=== PATIENT | female | born 1980 | race Caucasian/White ===

== ENCOUNTER 2018-06-20 19:00 | Emergency (ER) | payer MEDICAID, SELFPAY ==
[2018-06-20 19:05] VITALS: BP 142/97; PULSE 102; RESP 18; TEMP 36.5; O2SAT 97; BMI 31.9
--- NOTE | 2018-06-20 19:16 | RAD_ITS ---
STUDY: X-RAY - RIGHT HAND REASON FOR EXAM: Female, 38 years old. Punched wall. Fifth metacarpal pain. TECHNIQUE: Three view(s) of the hand. COMPARISON: None. FINDINGS: Bones: There are no acute osseous abnormalities. Joints: The joints are unremarkable. Soft tissues: The soft tissues are unremarkable. Foreign body: None RAD/Hand Min 3 Views IMPRESSION: No acute abnormalities are seen in the hand. Electronically Signed: Steve Santos MD at 20:09 EDT , Service support ,
--- NOTE | 2018-06-20 19:22 | ED.VISSUMM ---
- ER Visit Summary Date of Service: 06/20/18 Chief Complaint: Right hand injury History of Present Illness: The patient is a 38 F presenting with right hand injury. Patient states she was angry at 4 AM and punched a wall. She is right-handed. No other injuries. She complains of right small finger pain. Physical Examination: Vitals are stable. Patient is afebrile. Alert no acute distress. HEENT exam is unremarkable. Lungs are clear and equal bilaterally. Heart is regular rate and rhythm. Extremities tenderness and ecchymosis right small finger, painful range of motion Skin is warm and dry. No focal neurologic deficit. Remainder of exam is unremarkable. Emergency Department Course and Treatment: Right hand x-ray shows no acute process. Patient is advised to ice and elevate. Aluminum foam splint applied. Advised to follow-up with her primary care physician. Advised return to ED if worsening complaints. Disposition: Discharge home Impression: Right small finger injury This note was generated with [employer] dictation software. It may contain incorrect words, spelling, and punctuation that were not noted in review of the chart prior to signing ED Disposition - Plan for ED Patient: Disposition: Home or Assisted Living Chief Complaint: Upper Extremity Injury Instructions: ED Contusion Upper Ext Prescriptions: Naproxen [Naprosyn] 500 mg PO BID PRN #20 tablet Referrals: Care Physician,No Primary [Primary Care Provider] -
--- NOTE | 2018-06-20 20:17 | ED.DEP ---
ED Disposition - Plan for ED Patient: Chief Complaint: Upper Extremity Injury Instructions: ED Contusion Upper Ext Prescriptions: Naproxen [Naprosyn] 500 mg PO BID PRN #20 tablet Referrals: Care Physician,No Primary [Primary Care Provider] -
[2018-06-20 20:23] VITALS: PULSE 88; RESP 16
== END 2018-06-20 20:32 | disposition home or self-care (01) ==
LOC: ED 19:52
PROVIDERS: Emergency Provider Emergency Medicine
DX: S69.91XA Unspecified injury of right wrist, hand and finger(s), initial encounter (principal); W22.8XXA Striking against or struck by other objects, initial encounter; Y93.89 Activity, other specified; Z72.0 Tobacco use
CPT/HCPCS: 73130; 99282

== ENCOUNTER 2018-07-15 20:15 | Emergency (ER) | payer MEDICAID, SELFPAY ==
[2018-07-15 20:16] VITALS: BP 154/100; PULSE 98; RESP 16; TEMP 36.8; O2SAT 99; BMI 33.0
--- NOTE | 2018-07-15 20:25 | ED.RN ---
NO OLD EKGS IN MUSE.
--- NOTE | 2018-07-15 20:38 | CT_ITS ---
STUDY: CT ABDOMEN AND PELVIS WITHOUT CONTRAST REASON FOR EXAM: Female, 38 years old. Lower abdominal and pubic pain RADIATION DOSAGE (If Supplied By Facility): CTDIvol = ( 15.76 ) mGy, DLP = ( 858.60 ) mGycm TECHNIQUE: Transaxial images were obtained from the dome of the diaphragm to the symphysis pubis without oral contrast, and without intravenous contrast. Sagittal and coronal images were reconstructed. Individualized dose optimization techniques were used for this CT. COMPARISON: None. FINDINGS: There is a tiny nodule in the right lung base measuring 3 mm in size likely of no significance. The visualized portions of the heart are within normal limits. Small periesophageal and internal mammary nodes are present of uncertain etiology and significance Normal liver. Gallbladder has been removed surgically. Normal spleen. Normal pancreas. Normal bilateral adrenal glands. Normal right kidney. Normal left kidney. Normal visualized stomach. Normal small intestine. Diverticular changes of the descending and sigmoid colon without evidence for acute diverticulitis. Appendix not visualized which may be consistent with appendectomy. Atherosclerotic changes of the aorta without evidence for aneurysm. Normal inferior vena cava. Normal retroperitoneum. Post surgical changes are seen in the pelvis on the right Incompletely distended diffusely thick-walled bladder of uncertain clinical significance.. Uterus is normal size. There are 2 small hypoattenuated nodules in the uterine fundus consistent with fibroids Normal abdominal wall. Lumbar spine demonstrates mild spondylosis CT/Abdomen/Pelvis without Cont IMPRESSION: Postop changes status post cholecystectomy and probable appendectomy.. There are also postsurgical changes of the pelvis on the right. Mild diverticular disease of the colon without evidence for acute diverticulitis. Small nodules within the uterine fundus likely fibroids which may be further assessed with MRI if indicated Incompletely distended mildly thick-walled bladder of indeterminate significance although may be consistent with cystitis. Clinical correlation recommended in this regard Electronically Signed: Andrew Nguyễn MD at 21:18 EST , Service support ,
--- NOTE | 2018-07-15 20:38 | ED.VISSUMM ---
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 She reports that she has suprapubic pain began 3 days ago. Is a cramping, stabbing pain Zeta 10 at worst and 5-10 currently. Is worsened by intercourse and relieved by the position. Denies any nausea or vomiting. She reports she has had diarrhea 4 times a day for the past 3 days. She complains of a dysuria that she describes as pressure. She denies any frequency or hematuria. Patient is status post uterine ablation. Patient denies sick contacts. Has not been camping out of the country. No possible bad food exposure. Does not drink well water. No recent antibiotic use. Physical Examination: Vitals: Stable. Afebrile. General: Well-nourished and well-developed. Head: Normocephalic atraumatic. Neck: Supple, no lymphadenopathy. No JVD. Nontender. Cardiovascular: Regular rate and rhythm. No murmurs. Respiratory: No respiratory distress. Clear to auscultation bilaterally. Abdominal: Soft, mild right lower quadrant and left lower quadrant tenderness to palpation and moderate suprapubic tenderness to palpation, nondistended, normal bowel sounds. No guarding, rebound, or peritoneal signs. Back: Nontender. Extremities: Nontender, no edema. Skin: Normal color, no rash. Neurologic: Alert and oriented ?3. Cranial nerves II through XII are intact. Normal strength and sensation. Psych: Normal affect. Test Results: UA is negative. test is negative. Clinical Impression(s) from Imaging Studies Abdomen/Pelvis CT 07/15/18 20:38 IMPRESSION: Postop changes status post cholecystectomy and probable appendectomy.. There are also postsurgical changes of the pelvis on the right. Mild diverticular disease of the colon without evidence for acute diverticulitis. Small nodules within the uterine fundus likely fibroids which may be further assessed with MRI if indicated Incompletely distended mildly thick-walled bladder of indeterminate significance although may be consistent with cystitis. Clinical correlation recommended in this regard Electronically Signed: Andrew Nguyễn MD at 21:18 EST , Service support , Emergency Department Course and Treatment: Patient refused an IV and blood work. She was treated with Tylenol p.o. I discussed the findings with her. She questions whether her urine is negative because she has been drinking so much fluid. She was given a dose of Cipro p.o. I do not think that she has a bacterial source for her diarrhea, but this would help with that as well. Treatment Plan: Patient will be discharged with 3 days of Cipro. Instructed to follow-up with Dr. Sands in 1 week if not improving. I did discuss the need to see gynecology as well. She is instructed to follow-up with [facility] as needed. Return to the emergency department for any worsening symptoms. Disposition: To home in improved and stable condition. Impression: 1. Dysuria. 2. Diarrhea. 3. Pelvic pain, uncertain cause. This note was generated with [employer] dictation software. It may contain incorrect words, spelling, and punctuation that were not noted in review of the chart prior to signing ED Disposition - Plan for ED Patient: Disposition: Home or Assisted Living Chief Complaint: Abd Pain Instructions: ED Dysuria Uncertain Cause Prescriptions: Ciprofloxacin [Cipro] 500 mg PO BID #6 tablet Referrals: Andrew Sands MD [NON-STAFF] - 1 Week if not improving Cheri Zhang CNM [Certified Nurse Biologics Specialist] - As Needed
[2018-07-15] MEDS: Acetaminophen 500 MG Tablet 1000 MG PO (20:42)
[2018-07-15 20:47] LABS: Bacteria 0 SEEN /hpf (None Seen); Mucous, Urine 0 SEEN /hpf (<or=2+); Red Blood Cells-Urine 0 SEEN /hpf (0-5); White Blood Cells 0 SEEN /hpf (0-5)
[2018-07-15 20:48] LABS: Color, Urine Yellow (Yellow); Glucose, Dipstick Normal (Normal); Ketone-Dipstick Negative (Negative); Leukocyte Esterase-Dipstick Negative /ul (Negative); Nitrite-Dipstick Negative (Negative); Occult Blood-Urine Negative /ul (Negative); Protein-Dipstick Negative (Negative); Urine Bilirubin Dipstick Negative (Negative); Urine Clarity Clear (Clear); Urine Urobilinogen Normal (Normal)
[2018-07-15 20:55] LABS: Internal QC Validated? YES +Cl - CLEAR BKGD; Pregnancy, Urine Negative Negative
[2018-07-15 20:59] LABS: Squamous Epithelial Cells - UA 0-5 SEEN /hpf (5-10)
[2018-07-15] MEDS: Ciprofloxacin 500 MG Tablet PO (21:33)
[2018-07-15 21:34] VITALS: BP 133/85; PULSE 71; RESP 18; O2SAT 99
--- OUTSIDE RECORDS SUMMARY | 2018-09-10 04:36 | XMS RPT_ITS ---
:1980 Author Organization OHIP Care Team Providers Name Role Phone LUCIO ANDREA Primary Care Unavailable JASEN FISHER Attending Unavailable EROS, PAT Admitting Unavailable EROS, AMIR Attending Unavailable SHAUNA HONEYCUTT Consulting Unavailable NIMCO SINCLAIR Consulting Unavailable Daiana Kramer Attending Unavailable Primay Care Physicia, No Primary Care Unavailable Primay Care Physicia, No Primary Care Unavailable Vadim Choudhury Attending Unavailable ROSALEE CRESPO Admitting Unavailable MOABRILRCHARLIEE, DOMI Attending Unavailable NIMCO SINCLAIR Consulting Unavailable SHAUNA HONEYCUTT Consulting Unavailable MOOKERCHARLIEE, DOMI Consulting Unavailable PROBLEMS PROBLEMS DATE TYPE CONDITION / CODE ATTENDING STATUS SOURCE 09/27/2017 Admitting Cutaneous abscess Cole CHANDLER [facility] diagnosis of right axilla / [facility] L02.411(ICD-10) Repository 09/26/2017 Admitting Cellulitis, PAT COONEY Active [facility] diagnosis unspecified / Hospital L03.90(ICD-10) Repository 09/18/2017 Principle Acute JASEN FISHER Active [facility] diagnosis pharyngitis, Hospital unspecified / Repository J02.9(ICD-10) PROCEDURES PROCEDURES DATE CODE DESCRIPTION STATUS SOURCE 09/30/2017 VSW602(C4) AMB EXTERNAL REFERRAL Completed [facility] TO PSYCHOLOGY [facility] Repository 09/30/2017 YIP285(C4) AMB EXTERNAL REFERRAL Completed [facility] TO PAIN CLINIC [facility] Repository 09/30/2017 ZDC083(C4) DME ORDER FOR (SPECIFY) Completed [facility] OP [facility] Repository 09/30/2017 ADT8(C4) DISCHARGE PATIENT Completed [facility] Repository 09/30/2017 EOQ844(C4) MISCELLANEOUS NURSING Completed [facility] CARE ORDER (SPECIFY) Medical Center Repository 09/30/2017 83611(C4) US DUP ABD PEL RETRO Completed [facility] SCROT COMPLETE Medical Center Repository 09/30/2017 RT99(C4) INITIATE OXYGEN THERAPY Completed [facility] Repository 09/30/2017 LAB39(C4) VANCOMYCIN, TROUGH Completed [facility] Repository 09/30/2017 FER682(C4) INTAKE AND OUTPUT Completed [facility] Repository 09/30/2017 MXU877(C4) INTAKE AND OUTPUT Completed [facility] Repository 09/30/2017 PYC116(C4) INTAKE AND OUTPUT Completed [facility] Repository 09/30/2017 REP561(C4) CHANGE DRESSING Completed [facility] Repository 09/29/2017 TBC2765(C4) ALDOSTERONE AND Completed [facility] RENIN, DIRECT WITH Medical Center RATIO Repository 09/29/2017 ISO1(C4) CONTACT ISOLATION Completed [facility] Repository 09/29/2017 ECH09(C4) ECHOCARDIOGRAM COMPLETE Completed [facility] WITH BUBBLE STUDY Medical Center Repository 09/29/2017 RT99(C4) INITIATE OXYGEN THERAPY Completed [facility] Repository 09/29/2017 CAP423(C4) INTAKE AND OUTPUT Completed [facility] Repository 09/29/2017 BOX348(C4) INTAKE AND OUTPUT Completed [facility] Repository 09/29/2017 PQN887(C4) INTAKE AND OUTPUT Completed [facility] Repository 09/28/2017 ADT1(C4) PATIENT STATUS (FROM ED Completed [facility] OR OR/PROCEDURAL) Medical Center Repository 09/28/2017 COD2(C4) FULL CODE Completed [facility] Repository 09/28/2017 SPG707(C4) VITAL SIGNS Completed [facility] Repository 09/28/2017 NUR11(C4) AMBULATE PATIENT Completed [facility] Repository 09/28/2017 DIET24(C4) DIET GENERAL Completed [facility] Repository 09/28/2017 BQL803(C4) INTAKE AND OUTPUT Completed [facility] Repository 09/28/2017 WRY783(C4) INTAKE AND OUTPUT Completed [facility] Repository 09/28/2017 NUR51(C4) ELEVATE HOB Completed [facility] Repository 09/28/2017 FGU571(C4) TOBACCO CESSATION Completed [facility] Repository 09/28/2017 RT99(C4) INITIATE OXYGEN THERAPY Completed [facility] Repository 09/28/2017 RT99(C4) INITIATE OXYGEN THERAPY Completed [facility] Repository 09/28/2017 NFM100(C4) PLACE INTERMITTENT Completed [facility] PNEUMATIC COMPRESSION [facility] DEVICE Repository 09/28/2017 ADT7(C4) TRANSFER PATIENT Completed [facility] Repository 09/28/2017 EMQ0851(C4) SURGICAL CULTURE Completed [facility] Repository 09/28/2017 QAA9499(C4) SURGICAL CULTURE Completed [facility] Repository 09/28/2017 LAB39(C4) VANCOMYCIN, TROUGH Completed [facility] Repository 09/28/2017 CML8040(C4) CBC WITH AUTO Completed [facility] Repository 09/28/2017 LAB95(C4) LACTIC ACID, PLASMA Completed [facility] Repository 09/28/2017 GQR632(C4) APTT Completed [facility] Repository 09/28/2017 VPK183(C4) PROTIME-INR Completed [facility] Repository 09/28/2017 PFB448(C4) MAGNESIUM Completed [facility] Repository 09/28/2017 CVP2979(C4) URINE DRUG SCREEN Completed [facility] Repository 09/27/2017 QBC737(C4) PATIENT MAY SHOWER Completed [facility] Repository 09/27/2017 WYH526(C4) MAGNESIUM Completed [facility] Repository 09/27/2017 LAB17(C4) COMPREHENSIVE METABOLIC Completed [facility] Repository 09/27/2017 CCG5979(C4) CBC WITH AUTO Completed [facility] Repository 09/27/2017 TFS254(C4) TYPE AND SCREEN Completed [facility] Repository 09/27/2017 LAB99(C4) LIPASE Completed [facility] Repository 09/27/2017 LAB95(C4) LACTIC ACID, PLASMA Completed [facility] Repository 09/27/2017 SUR1(C4) CASE REQUEST Completed [facility] Repository 09/27/2017 XVI283(C4) TREATMENT CONSENT Completed [facility] Repository 09/27/2017 con4(C4) IP CONSULT TO GENERAL Completed [facility] Repository 09/27/2017 con5(C4) IP CONSULT TO Completed [facility] INFECTIOUS DISEASES [facility] Repository 09/27/2017 ONK681(C4) MISCELLANEOUS NURSING Completed [facility] ORDER ([facility]) [facility] Repository 09/27/2017 EWT285(C4) IP CONSULT TO PHARMACY Completed [facility] Repository 09/27/2017 WVN203(C4) IP CONSULT TO PHARMACY Completed [facility] Repository 09/27/2017 EVD864(C4) TELEMETRY MONITORING Completed [facility] Repository 09/27/2017 QWU462(C4) NOTIFY PHYSICIAN Completed [facility] (SPECIFY) [facility] Repository 09/27/2017 VOH159(C4) VITAL SIGNS Completed [facility] Repository 09/27/2017 DDV137(C4) PLACE INTERMITTENT Completed [facility] PNEUMATIC COMPRESSION [facility] DEVICE Repository 09/27/2017 ADT8(C4) DISCHARGE PATIENT Completed [facility] Repository 09/27/2017 RTL252(C4) TELEMETRY MONITORING Completed [facility] Repository 09/27/2017 JVZ485(C4) IP CONSULT TO PHARMACY Completed [facility] Repository 09/27/2017 ECH09(C4) ECHOCARDIOGRAM COMPLETE Completed [facility] WITH BUBBLE STUDY Hospital Repository 09/27/2017 con5(C4) IP CONSULT TO Completed [facility] INFECTIOUS DISEASES Hospital Repository 09/27/2017 con4(C4) IP CONSULT TO GENERAL Completed [facility] Repository 09/26/2017 VED623(C4) HCG, SERUM, QUALITATIVE Completed [facility] Repository 09/26/2017 LQL885(C4) IP CONSULT TO PHARMACY Completed [facility] Repository 09/26/2017 COD2(C4) FULL CODE Completed [facility] Repository 09/26/2017 LQB320(C4) VITAL SIGNS Completed [facility] Repository 09/26/2017 NBC608(C4) NOTIFY PHYSICIAN Completed [facility] (SPECIFY) Hospital Repository 09/26/2017 DIET24(C4) DIET GENERAL Completed [facility] Repository 09/26/2017 BBP802(C4) PLACE INTERMITTENT Completed [facility] PNEUMATIC COMPRESSION Hospital DEVICE Repository 09/26/2017 XUA034(C4) MISCELLANEOUS NURSING Completed [facility] CARE ORDER (SPECIFY) Hospital Repository 09/26/2017 ADT1(C4) PATIENT STATUS (FROM ED Completed [facility] OR OR/PROCEDURAL) Hospital Repository 09/26/2017 LAB17(C4) COMPREHENSIVE METABOLIC Completed [facility] PANEL Hospital Repository 09/26/2017 WSM3936(C4) CBC WITH AUTO Completed [facility] DIFFERENTIAL [facility] Repository 09/26/2017 KXI2738(C4) CULTURE BLOOD #1 Completed [facility] Repository 09/26/2017 ETZ5285(C4) CULTURE BLOOD #2 Completed [facility] Repository 09/26/2017 IVT11(C4) SALINE LOCK IV Completed [facility] Repository 09/18/2017 YXG675(C4) RAPID STREP SCREEN Completed [facility] Repository 09/18/2017 JWV7443(C4) CULTURE BETA STREP Completed [facility] CONFIRM PLATE Hospital Repository RESULTS RESULTS EMERGENCY DEPARTMENT Observed: 07/15/2018 Status: F Source: [place] SUMMARY 11:11 PM [facility] REPOSITORY [facility] Medical Records Department [address] [place] [address] Emergency Department Summary 07/15/182037 MR#: [id number] Acct: [id number] Name: GODFREY CORNEJO Rep #: [id number] : 1980 38 From: Vadim Choudhury MD PCP: Care Physician, No Primary Status: DEP ER - ER Visit Summary Date of Service: 07/15/18 Chief Complaint: Abdominal pain History of Present Illness: The patient is a 38 F with no primary care physician or 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 She reports that she has suprapubic pain began 3 days ago. Is a cramping, stabbing pain Zeta 10 at worst and 5-10 currently. Is worsened by intercourse and relieved by the position. Denies any nausea or vomiting. She reports she has had diarrhea 4 times a day for the past 3 days. She complains of a dysuria that she describes as pressure. She denies any frequency or hematuria. Patient is status post uterine ablation. Patient denies sick contacts. Has not been camping out of the country. No possible bad food exposure. Does not drink well water. No recent antibiotic use. Physical Examination: Vitals: Stable. Afebrile. General: Well-nourished and well-developed. Head: Normocephalic atraumatic. Neck: Supple, no lymphadenopathy. No JVD. Nontender. Cardiovascular: Regular rate and rhythm. No murmurs. Respiratory: No respiratory distress. Clear to auscultation bilaterally. Abdominal: Soft, mild right lower quadrant and left lower quadrant tenderness to palpation and moderate suprapubic tenderness to palpation, nondistended, normal bowel sounds. No guarding, rebound, or peritoneal signs. Back: Nontender. Extremities: Nontender, no edema. Skin: Normal color, no rash. Neurologic: Alert and oriented 3. Cranial nerves II through XII are intact. Normal strength and sensation. Psych: Normal affect. Test Results: UA is negative. test is negative. Clinical Impression(s) from Imaging Studies Abdomen/Pelvis CT 07/15/18 20:38 IMPRESSION: Postop changes status post cholecystectomy and probable appendectomy.. There are also postsurgical changes of the pelvis on the right. Mild diverticular disease of the colon without evidence for acute diverticulitis. Small nodules within the uterine fundus likely fibroids which may be further assessed with MRI if indicated Incompletely distended mildly thick-walled bladder of indeterminate significance although may be consistent with cystitis. Clinical correlation recommended in this regard Electronically Signed: Andrew Nguyễn MD at 21:18 EST , Service support , Emergency Department Course and Treatment: Patient refused an IV and blood work. She was treated with Tylenol p.o. I discussed the findings with her. She questions whether her urine is negative because she has been drinking so much fluid. She was given a dose of Cipro p.o. I do not think that she has a bacterial source for her diarrhea, but this would help with that as well. Treatment Plan: Patient will be discharged with 3 days of Cipro. Instructed to follow-up with Dr. Sands in 1 week if not improving. I did discuss the need to see gynecology as well. She is instructed to [facility]. Return to the emergency department for any worsening symptoms. Disposition: To home in improved and stable condition. Impression: 1. Dysuria. 2. Diarrhea. 3. Pelvic pain, uncertain cause. This note was generated with [employer] dictation software. It may contain incorrect words, spelling, and punctuation that were not noted in review of the chart prior to signing ED Disposition - Plan for ED Patient: Disposition: Home or Assisted Living Chief Complaint: Abd Pain Instructions: ED Dysuria Uncertain Cause Prescriptions: Ciprofloxacin [Cipro] 500 mg PO BID #6 tablet Referrals: Andrew Sands MD [NON-STAFF] - 1 Week if not improving Cheri Zhang CNM [Certified Nurse Muffler Hand] - As Needed What to do if you have Problems For any increased pain, shortness of breath, bleeding, nausea or vomiting, chest pain, or any unexpected problems, contact your Primary Care Provider. Call [facility] ([phone]) or report to the closest Emergency Room. Call 911 if necessary. 07/15/18 2311 <Electronically signed by Vadim Choudhury MD> Date Vadim Choudhury MD Cosigner Signature (If Indicated): Date CC: No Primary Care Physician ABDOMEN/PELVIS WITHOUT Observed: 07/15/2018 Status: F Source: [place] CONT 8:38 PM [facility] REPOSITORY [facility] Imaging Services [address] [place] [address] Abdomen/Pelvis without Cont MR#: [id number] Acct: [id number] Name: GODFREY CORNEJO Rep #: [id number] : 1980 F 38 From: nAdrew Nguyễn MD PCP: Care Physician, No Primary Status: REG ER Study: Abdomen/Pelvis without Cont Date of Exam: 07/15/18 Exam# [id number] Ordering Dr: Vadim Choudhury MD STUDY: CT ABDOMEN AND PELVIS WITHOUT CONTRAST REASON FOR EXAM: Female, 38 years old. Lower abdominal and pubic pain RADIATION DOSAGE (If Supplied By Facility): CTDIvol = ( 15.76 ) mGy, DLP = ( 858.60 ) mGycm TECHNIQUE: Transaxial images were obtained from the dome of the diaphragm to the symphysis pubis without oral contrast, and without intravenous contrast. Sagittal and coronal images were reconstructed. Individualized dose optimization techniques were used for this CT. COMPARISON: None. FINDINGS: There is a tiny nodule in the right lung base measuring 3 mm in size likely of no significance. The visualized portions of the heart are within normal limits. Small periesophageal and internal mammary nodes are present of uncertain etiology and significance Normal liver. Gallbladder has been removed surgically. Normal spleen. Normal pancreas. Normal bilateral adrenal glands. Normal right kidney. Normal left kidney. Normal visualized stomach. Normal small intestine. Diverticular changes of the descending and sigmoid colon without evidence for acute diverticulitis. Appendix not visualized which may be consistent with appendectomy. Atherosclerotic changes of the aorta without evidence for aneurysm. Normal inferior vena cava. Normal retroperitoneum. Post surgical changes are seen in the pelvis on the right Incompletely distended diffusely thick-walled bladder of uncertain clinical significance.. Uterus is normal size. There are 2 small hypoattenuated nodules in the uterine fundus consistent with fibroids Normal abdominal wall. Lumbar spine demonstrates mild spondylosis CT/Abdomen/Pelvis without Cont IMPRESSION: Postop changes status post cholecystectomy and probable appendectomy.. There are also postsurgical changes of the pelvis on the right. Mild diverticular disease of the colon without evidence for acute diverticulitis. Small nodules within the uterine fundus likely fibroids which may be further assessed with MRI if indicated Incompletely distended mildly thick-walled bladder of indeterminate significance although may be consistent with cystitis. Clinical correlation recommended in this regard Electronically Signed: Andrew Nguyễn MD at 21:18 EST , Service support , CC: No Primary Care Physician; Vadim Choudhury MD [employer] Developer: Signed URINALYSIS, COMPLETE Collected: 07/15/2018 Status: F Source: [place] 8:22 PM [facility] REPOSITORY Order Comment: How was Urine Obtained? CLEAN CATCH TYPE CODE TESTS RESULT OUT OF RANGE REFERENCE UNITS LAB L400.3000 Yellow COLOR Normal Yellow LAB L400.3050 Clear Normal CLARITY Clear LAB L400.3200 Normal mg/dl Normal GLUCOSE, UR Normal LAB L400.3300 Negative mg/dL Normal BILIRUBIN URINE Negative LAB L400.3400 Negative mg/dl Normal KETONE UR Negative LAB L400.3465 1.002-1.030 Normal SP.GR. DIPSTX 1.010 LAB L400.3550 5.0 - 8.0 pH UR Normal 5.0 LAB L400.3600 Negative mg/dl PROT Normal DIPSTX Negative LAB L400.3700 Normal mg/dl Normal UROBILI Normal LAB L400.3750 Negative Normal NITRITE UR Negative LAB L400.3780 Negative /ul Normal OCCULT BLOOD-UR Negative LAB L400.3800 Negative /ul LEUK Normal ESTERASE Negative LAB L400.4050 0-5 /hpf WBC 0 Normal SEEN LAB L400.4100 0-5 /hpf 0 Normal RBC-UA SEEN LAB L400.4150 5-10 /hpf SQUAM Normal EPI 0-5 SEEN LAB L400.4300 None Seen /hpf 0 Normal BACTERIA SEEN LAB L400.4350 <or=2+ /hpf 0 Normal MUCUS, URINE SEEN Performed By: #### L400.0001 #### [facility] [address] [facility] [address] [place], [place], [address] ,URINE Collected: 07/15/2018 Status: F Source: [place] 8:22 PM [facility] REPOSITORY TYPE CODE TESTS RESULT OUT OF REFERENCE UNITS RANGE LAB L400.8000 Negative Normal HCGUQUAL Negative Result Comment: Very dilute urine specimens, as indicated by a low specific gravity, may not contain district representative levels of hCG. If is still suspected, a first morning urine specimen should be collected 48 hours later and tested. Performed By: #### L400.7600 #### [facility] [address] [place], [address] EMERGENCY DEPARTMENT Observed: 06/21/2018 Status: F Source: [place] SUMMARY 12:10 AM [facility] REPOSITORY [facility] Medical Records Department [address] [place] [address] Emergency Department Summary 06/20/181921 MR#: [id number] Acct: [id number] Name: GODFREY CORNEJO Rep #: [id number] : 1980 38 From: Daiana Kramer MD PCP: Donnie Physician, No Primary Status: DEP ER - ER Visit Summary Date of Service: 06/20/18 Chief Complaint: Right hand injury History of Present Illness: The patient is a 38 F presenting with right hand injury. Patient states she was angry at 4 AM and punched a wall. She is right- handed. No other injuries. She complains of right small finger pain. Physical Examination: Vitals are stable. Patient is afebrile. Alert no acute distress. HEENT exam is unremarkable. Lungs are clear and equal bilaterally. Heart is regular rate and rhythm. Extremities tenderness and ecchymosis right small finger, painful range of motion Skin is warm and dry. No focal neurologic deficit. Remainder of exam is unremarkable. Emergency Department Course and Treatment: Right hand x-ray shows no acute process. Patient is advised to ice and elevate. Aluminum foam splint applied. Advised to follow-up with her primary care physician. Advised return to ED if worsening complaints. Disposition: Discharge home Impression: Right small finger injury This note was generated with [employer] dictation software. It may contain incorrect words, spelling, and punctuation that were not noted in review of the chart prior to signing ED Disposition - Plan for ED Patient: Disposition: Home or Assisted Living Chief Complaint: Upper Extremity Injury Instructions: ED Contusion Upper Ext Prescriptions: Naproxen [Naprosyn] 500 mg PO BID PRN #20 tablet Referrals: Care Physician,No Primary [Primary Care Provider] - What to do if you have Problems For any increased pain, shortness of breath, bleeding, nausea or vomiting, chest pain, or any unexpected problems, contact your Primary Care Provider. Call [facility] ([phone]) or report to the closest Emergency Room. Call 911 if necessary. 06/21/18 0010 <Electronically signed by Daiana Kramer MD> Date Daiana Kramer MD Cosigner Signature (If Indicated): Date CC: No Primary Care Physician DISCHARGE INSTRUCTION Observed: 06/20/2018 Status: F Source: [place] 8:19 PM [facility] REPOSITORY [facility] Medical Records Department [address] [place] [address] Discharge Instruction 06/20/182016 MR#: [id number] Acct: [id number] Name: GODFREY CORNEJO Rep #: [id number] : 1980 38 From: Daiana Kramer MD PCP: Care Physician, No Primary Status: REG ER ED Disposition - Plan for ED Patient: Chief Complaint: Upper Extremity Injury Instructions: ED Contusion Upper Ext Prescriptions: Naproxen [Naprosyn] 500 mg PO BID PRN #20 tablet Referrals: Care Physician,No Primary [Primary Care Provider] - What to do if you have Problems For any increased pain, shortness of breath, bleeding, nausea or vomiting, chest pain, or any unexpected problems, contact your Primary Care Provider. Call [facility] ([phone]) or report to the closest Emergency Room. Call 911 if necessary. 06/20/182018 <Electronically signed by Daiana Kramer MD> Date Daiana Kramer MD Cosigner Signature (If Indicated): Date CC: No Primary Care Physician HAND MIN 3 VIEWS Observed: 06/20/2018 Status: F Source: [place] 7:17 PM [facility] REPOSITORY [facility] Imaging Services [address] [place] [address] Hand Min 3 Views MR#: [id number] Acct: [id number] Name: GODFREY CORNEJO Rep #: [id number] : 1980 F 38 From: Steve Santos MD PCP: Care Physician, No Primary Status: REG ER Study: Hand Min 3 Views Date of Exam: 06/20/18 Exam# [id number] Ordering Dr: Daiana Kramer MD STUDY: X-RAY - RIGHT HAND REASON FOR EXAM: Female, 38 years old. Punched wall. Fifth metacarpal pain. TECHNIQUE: Three view(s) of the hand. COMPARISON: None. FINDINGS: Bones: There are no acute osseous abnormalities. Joints: The joints are unremarkable. Soft tissues: The soft tissues are unremarkable. Foreign body: None RAD/Hand Min 3 Views IMPRESSION: No acute abnormalities are seen in the hand. Electronically Signed: Steve Santos MD at 20:09 EDT , Service support , CC: No Primary Care Physician; Daiana Kramer MD [employer] Developer: Signed VANCOMYCINTROUGH LEVEL Collected: 09/30/2017 Status: F Source: [facility] 12:43 AM [facility] REPOSITORY TYPE CODE TESTS RESULT OUT OF REFERENCE UNITS RANGE LAB VANT1 5.0-10.0 ug/mL Vancomycin 8.8 Trough US DUP ABD PEL RETRO Observed: 09/29/2017 Status: F Source: [facility] SCROT COMPLETE 7:00 PM [facility] REPOSITORY US DUP ABD PEL RETRO SCROT COMPLETE : 09/30/2017 CLINICAL HISTORY: Concern for renal artery stenosis; HTN in young adult . COMPARISON: None available. TECHNIQUE: Transabdominal ultrasound of the kidneys was performed with Doppler analysis compared to the abdominal aorta, for evaluation of renal artery stenosis. FINDINGS: Both kidneys are normal in size, position and morphology, each measuring approximately 11.8 cm in length. Maximum systolic velocity within the right renal artery is 130 cm/s, and on the left approximately 123 cm/s. When compared to the abdominal aorta the systolic ratios are 1.0 on the right and 0.95 on the left, which indicates less than 60% stenosis. Resistive index measurements are approximately 0.7 bilaterally. There are no abnormal perinephric collections, hydronephrosis, visualized nephrolithiasis, solid or cystic renal masses, significant renal atrophy, cortical cortical echogenicity. IMPRESSION: NORMAL-APPEARING KIDNEYS, WITHOUT EVIDENCE OF RENAL ARTERY STENOSIS. Interpreted by: Miguel Houston MD Signed by: Miguel Houston MD 09/30/17 Final result ALDOSTERONE & RENIN, Collected: 09/29/2017 Status: F Source: [email or web address] WITH RATIO 6:45 PM [facility] REPOSITORY TYPE CODE TESTS RESULT OUT OF REFERENCE UNITS RANGE LAB 0157F 2.5-45.7 pg/mL Direct Renin 3.0 LAB 0258C 0.1-3.7 ratio Aldosterone/Direc <1.0 t Renin Calculation Result Comment: INTERPRETIVE INFORMATION: Aldosterone/Direct Renin Ratio An Aldosterone/Direct Renin Activity Ratio of greater than 3.7 is suggestive of hyperaldosteronism. Performed by [facility], [address] [place] [id number] [email or web address], Kenan Toribio MD - Lab. Director LAB 7001E ng/dL Aldosterone <3.0 Result Comment: INTERPRETIVE INFORMATION: Aldosterone, Serum Reference intervals for age 15 and older: Upright ......... 4.0 - 31.0 ng/dL Supine .......... Less than or equal to 16.0 ng/dL Unspecified ..... Less than or equal to 31.0 ng/dL Normal serum levels of aldosterone are dependent on the sodium intake and whether the patient is upright or supine. High sodium intake will tend to suppress serum aldosterone, whereas low sodium intake will elevate serum aldosterone. The reference intervals for serum aldosterone are based on normal sodium intake. Access complete set of age- and/or gender-specific reference intervals for this test in the [facility] Test Directory ([email or web address]). Observed: 09/28/2017 Status: F Source: [facility] CULTURE, SURGICAL 9:36 [facility] REPOSITORY ORDERED BY: SHAUNA HONEYCUTT SOURCE: Arm Swab COLLECTED: 09/28/17 09:36 ANTIBIOTICS AT [facility].: RECEIVED : 09/28/17 13:09 CALL Sebastian LC4W tel. [phone], MRSA results called to and read back by Tammy Cuenca, 09/29/2017 10:58, by AKESH Gram Stain Direct FINAL 09/28/17 14:23 Few WBC's Few Gram positive cocci in clusters-resembling Staph Culture, Anaerobic FINAL 09/30/17 11:38 No Anaerobes Isolated Culture, Surgical FINAL 09/30/17 11:38 Moderate growth Staph aureus MRSA CONTACT PRECAUTIONS INDICATED PBP2= POSITIVE Refer to previous sensitivity Observed: 09/28/2017 Status: F Source: [facility] CULTURE, SURGICAL 9:35 [facility] REPOSITORY ORDERED BY: SHAUNA HONEYCUTT SOURCE: Arm Swab COLLECTED: 09/28/17 09:35 ANTIBIOTICS AT [facility]ISA.: RECEIVED : 09/28/17 13:09 CALL Sebastian LC4W tel. [phone], MRSA results called to and read back by Tammy Cuenca, 09/29/2017 10:57, by AKESH Gram Stain Direct FINAL 09/28/17 14:22 Moderate WBC's Rare intracellular Gram positive cocci Culture, Anaerobic PRELIM 09/29/17 10:08 Culture in progress Culture, Surgical INTERIM 09/29/17 10:57 Moderate growth Staph aureus MRSA Sensitivity to follow CONTACT PRECAUTIONS INDICATED PBP2= POSITIVE Observed: 09/28/2017 Status: F Source: [facility] BACTERIAL SUSCEPTIBILITY 9:35 AM [facility] REPOSITORY ORDERED BY: SHAUNA HONEYCUTT SOURCE: Arm Swab COLLECTED: 09/28/17 09:35 ANTIBIOTICS AT [facility].: RECEIVED : 09/28/17 13:09 CALL Sebastian LC4W tel. [phone], MRSA results called to and read back by Tammy Cuenca, 09/29/2017 10:57, by AKESH Gram Stain Direct FINAL 09/28/17 14:22 Moderate WBC's Rare intracellular Gram positive cocci Culture, Anaerobic FINAL 09/30/17 11:37 No Anaerobes Isolated Culture, Surgical FINAL 02/13/18 11:37 Moderate growth Staph aureus MRSA CONTACT PRECAUTIONS INDICATED PBP2= POSITIVE S.aureus MRSA ANTIBIOTICS PABLO Interp Cefazolin R Ceftriaxone R Clindamycin 0.25 S Gentamicin <=0.5 S Oxacillin >=4 R Trimethoprim/Sulfamethoxazole <=10 S Vancomycin <=0.5 S S=SUSCEPTIBLE I=INTERMEDIATE R=RESISTANT VANCOMYCINTROUGH LEVEL Collected: 09/28/2017 Status: F Source: [facility] 8:28 AM [facility]ENTER REPOSITORY TYPE CODE TESTS RESULT OUT OF REFERENCE UNITS RANGE LAB VANT1 5.0-10.0 ug/mL High alert Vancomycin 11.5 Trough CBC WITH PLATELET AND Collected: 09/28/2017 Status: F Source: [facility] 5:18 AM [facility] REPOSITORY TYPE CODE TESTS RESULT OUT OF REFERENCE UNITS RANGE LAB WBCIR 4.8-10.8 K/uL WBC High alert 12.8 LAB RBC 4.20-5.40 M/uL Low RBC 4.11 LAB HGB 12.0-16.0 g/dL Hemoglobin 12.5 LAB HCT 37.0-47.0 % Hematocrit 38.3 LAB MCV 82.0-100.0 fL MCV 93.2 LAB MCH 27.0-31.3 pg MCH 30.4 LAB MCHC 33.0-37.0 % Low MCHC 32.7 LAB RDW 11.5-14.5 % RDW 13.0 LAB PLT 130-400 K/uL Platelet Count 211 LAB SEGR % Neutrophils 79.1 LAB LYMPR % Lymphocytes 13.5 LAB MONOR % Monocytes 6.0 LAB EOSR % Eosinophils 1.1 LAB BASOR % Basophils 0.3 LAB ASEGR 1.4-6.5 K/uL Absolute High alert Neutrophils 10.1 LAB ALYMR 1.0-4.8 K/uL Absolute Lymphocytes 1.7 LAB AMONR 0.2-0.8 K/uL Absolute Monocytes 0.8 LAB AEOSR 0.0-0.7 K/uL Absolute Eosinophils 0.1 LAB ABASR 0.0-0.2 K/uL Absolute Basophils 0.0 LACTIC ACID Collected: 09/28/2017 Status: F Source: [place] [id number] [place] [address] REPOSITORY TYPE CODE TESTS RESULT OUT OF REFERENCE UNITS RANGE LAB LACID 0.5-2.2 mmol/L Lactic Acid 1.2 MAGNESIUM Collected: 09/28/2017 Status: F Source: [place] [id number] [place] [address] REPOSITORY TYPE CODE TESTS RESULT OUT OF REFERENCE UNITS RANGE LAB MG 1.7-2.3 mg/dL Magnesium 2.2 PARTIAL THROMBOPLASTIN Collected: 09/28/2017 Status: F Source: [place] [id number] [place] [address] REPOSITORY TYPE CODE TESTS RESULT OUT OF REFERENCE UNITS RANGE LAB PTT 21.6-35.4 sec Partial Thromboplastin Time 29.2 Result Comment: Heparin Therapeutic Range: 38.8 - 54.6 seconds. PROTHROMBIN TIME Collected: 09/28/2017 Status: F Source: [address] REPOSITORY TYPE CODE TESTS RESULT OUT OF REFERENCE UNITS RANGE LAB PTI 8.1-13.7 sec Prothrombin Time 10.6 LAB INR INR 1.0 Result Comment: Recommended INR therapeutic ranges for oral anticoagulant therapy Prophylaxis/treatment of: INR Venous Thrombosis, Pulmonary Embolism 2.0-3 Prevention of Systemic Embolism from: Atrial Fibrillation 2.0-3.0 Myocardial Infarction 2.0-3.0 Mechanical Prosthetics Heart Valves 2.5-3.5 Recurrent Systemic Embolism 2.5-3.5 Guidelines for patients with coagulopathy, e.g. liver disease: Use the Protime resulted in seconds. Mild 12.9-17.0 sec Moderate 17.1-22.6 sec Severe G.T. 22.6 sec CBC WITH PLATELET AND Collected: 09/27/2017 Status: F Source: [facility] DIFFERENTIAL 6:18 PM [facility] REPOSITORY TYPE CODE TESTS RESULT OUT OF REFERENCE UNITS RANGE LAB WBCIR 4.8-10.8 K/uL WBC High alert 13.8 LAB RBC 4.20-5.40 M/uL RBC 4.38 LAB HGB 12.0-16.0 g/dL Hemoglobin 13.3 LAB HCT 37.0-47.0 % Hematocrit 41.1 LAB MCV 82.0-100.0 fL MCV 94.0 LAB MCH 27.0-31.3 pg MCH 30.4 LAB MCHC 33.0-37.0 % Low MCHC 32.4 LAB RDW 11.5-14.5 % RDW 13.1 LAB PLT 130-400 K/uL Platelet Count 240 LAB SEGR % Neutrophils 73.5 LAB LYMPR % Lymphocytes 17.5 LAB MONOR % Monocytes 7.4 LAB EOSR % Eosinophils 1.4 LAB BASOR % Basophils 0.2 LAB ASEGR 1.4-6.5 K/uL Absolute High alert Neutrophils 10.2 LAB ALYMR 1.0-4.8 K/uL Absolute Lymphocytes 2.4 LAB AMONR 0.2-0.8 K/uL Absolute High alert Monocytes 1.0 LAB AEOSR 0.0-0.7 K/uL Absolute Eosinophils 0.2 LAB ABASR 0.0-0.2 K/uL Absolute Basophils 0.0 COMPREHENSIVE METABOLIC Collected: 09/27/2017 Status: F Source: [facility] PANEL 6:18 PM [facility] REPOSITORY TYPE CODE TESTS RESULT OUT OF REFERENCE UNITS RANGE LAB NA 132-144 mEq/L Sodium 137 LAB K 3.5-5.1 mEq/L Potassium 4.9 LAB CL 98-107 mEq/L Chloride 99 LAB CO2 22-29 mEq/L CO2 27 LAB AGAP 7-13 mEq/L Anion Gap 11 LAB GLU 74-109 mg/dL Glucose 97 LAB BUN 6-20 mg/dL BUN 14 LAB CREA 0.50-0.90 mg/dL Creatinine 0.86 LAB GFR >60 GFR >60.0 Result Comment: >60 mL/min/1.73m2 EGFR, calc. for ages 18 and older using the MDRD formula (not corrected for weight), is valid for stable renal function. LAB GFRAA >60 eGFR >60.0 Result Comment: >60 mL/min/1.73m2 EGFR, calc. for ages 18 and older using the MDRD formula (not corrected for weight), is valid for stable renal function. LAB CA 8.6-10.2 mg/dL Calcium 8.8 LAB TP 6.4-8.1 g/dL Total Protein 6.7 LAB ALB 3.9-4.9 g/dL Albumin Low 3.5 LAB BILIT 0.0-1.2 mg/dL Bilirubin Total 0.3 LAB ALP 40-130 U/L Alkaline Phosphatase 83 LAB ALT 0-33 U/L ALT 11 LAB AST 0-35 U/L AST 10 LAB GLOB 2.3-3.5 g/dL Globulin 3.2 MAGNESIUM Collected: 09/27/2017 Status: F Source: [facility] 6:18 PM [facility]ENTER REPOSITORY TYPE CODE TESTS RESULT OUT OF REFERENCE UNITS RANGE LAB MG 1.7-2.3 mg/dL Magnesium 2.2 Observed: 09/27/2017 Status: F Source: [facility] TYPE AND SCREEN 6:18 PM [facility] CAPTURE 3 SCRN CELL REPOSITORY PATIENT: CHANTAL High LOC: [id number],[id number] BILL# : [id number] : 1980 SEX: F ORDERED BY: ZAK CLEANING ORDERED : 09/27/2017 18:11 COLLECTED: 09/27/2017 18:18 ORDER : [id number] RECEIVED : 09/27/2017 18:39 TEST NAME RESULT UNITS RANGES ABN [place] [facility] Capture A POS F Antibody 3 Cell Scrn Captu NEG F LIPASE Collected: 09/27/2017 Status: F Source: [facility] 6:18 PM [facility]ENTER REPOSITORY TYPE CODE TESTS RESULT OUT OF REFERENCE UNITS RANGE LAB LIPAS 13-60 U/L Lipase 15 LACTIC ACID Collected: 09/27/2017 Status: F Source: [facility] 6:17 PM [facility] REPOSITORY TYPE CODE TESTS RESULT OUT OF REFERENCE UNITS RANGE LAB LACID 0.5-2.2 mmol/L Lactic Acid 0.8 SERUM HCG QUALITATIVE Collected: 09/26/2017 Status: F Source: [facility] 10:55 PM HOSPITAL REPOSITORY TYPE CODE TESTS RESULT OUT OF REFERENCE UNITS RANGE LAB SHCG1 Serum HCG Qualitative Negative CBC WITH PLATELET AND Collected: 09/26/2017 Status: F Source: [facility] DIFFERENTIAL 9:11 PM HOSPITAL REPOSITORY TYPE CODE TESTS RESULT OUT OF REFERENCE UNITS RANGE LAB WBCIR 4.8-10.8 K/uL WBC High alert 18.3 LAB RBC 4.20-5.40 M/uL RBC 4.81 LAB HGB 12.0-16.0 g/dL Hemoglobin 14.8 LAB HCT 37.0-47.0 % Hematocrit 43.9 LAB MCV 82.0-100.0 fL MCV 91.2 LAB MCH 27.0-31.3 pg MCH 30.7 LAB MCHC 33.0-37.0 % MCHC 33.7 LAB RDW 11.5-14.5 % RDW 12.8 LAB PLT 130-400 K/uL Platelet Count 253 LAB SEGR % Neutrophils 86.5 LAB LYMPR % Lymphocytes 8.7 LAB MONOR % Monocytes 4.1 LAB EOSR % Eosinophils 0.6 LAB BASOR % Basophils 0.1 LAB ASEGR 1.4-6.5 K/uL Absolute High alert Neutrophils 15.8 LAB ALYMR 1.0-4.8 K/uL Absolute Lymphocytes 1.6 LAB AMONR 0.2-0.8 K/uL Absolute Monocytes 0.7 LAB AEOSR 0.0-0.7 K/uL Absolute Eosinophils 0.1 LAB ABASR 0.0-0.2 K/uL Absolute Basophils 0.0 COMPREHENSIVE METABOLIC Collected: 09/26/2017 Status: F Source: [facility] PANEL 9:11 PM HOSPITAL REPOSITORY TYPE CODE TESTS RESULT OUT OF REFERENCE UNITS RANGE LAB NA 132-144 mEq/L Sodium 138 LAB K 3.5-5.1 mEq/L Potassium 4.3 LAB CL 98-107 mEq/L Low Chloride 97 LAB CO2 22-29 mEq/L CO2 27 LAB AGAP 7-13 mEq/L Anion High alert Gap 14 LAB GLU 74-109 mg/dL Low Glucose 72 LAB BUN 6-20 mg/dL BUN 15 LAB CREA 0.50-0.90 mg/dL Creatinine 0.74 LAB GFR >60 GFR >60.0 Result Comment: >60 mL/min/1.73m2 EGFR, calc. for ages 18 and older using the MDRD formula (not corrected for weight), is valid for stable renal function. LAB GFRAA >60 eGFR >60.0 Result Comment: >60 mL/min/1.73m2 EGFR, calc. for ages 18 and older using the MDRD formula (not corrected for weight), is valid for stable renal function. LAB CA 8.6-10.2 mg/dL Calcium 9.4 LAB TP 6.4-8.1 g/dL Total Protein 7.4 LAB ALB 3.9-4.9 g/dL Albumin 3.9 LAB BILIT 0.0-1.2 mg/dL Bilirubin Total 0.5 LAB ALP 40-130 U/L Alkaline Phosphatase 81 LAB ALT 0-33 U/L ALT 12 LAB AST 0-35 U/L AST 13 LAB GLOB 2.3-3.5 g/dL Globulin 3.5 Observed: 09/26/2017 Status: F Source: [facility] CULTURE, BLOOD 9:11 PM HOSPITAL REPOSITORY ORDERED BY: NANCY ALONSO SOURCE: Blood COLLECTED: 09/26/17 21:11 ANTIBIOTICS AT [facility].: RECEIVED : 09/27/17 09:59 Culture, Blood FINAL 10/02/17 10:15 No growth after 5 days of incubation. Observed: 09/26/2017 Status: F Source: [facility] CULTURE, BLOOD 2 9:11 PM HOSPITAL REPOSITORY ORDERED BY: NANCY ALONSO SOURCE: Blood COLLECTED: 09/26/17 21:11 ANTIBIOTICS AT [facility].: RECEIVED : 09/27/17 09:59 Culture, Blood 2 FINAL 10/02/17 10:15 No growth after 5 days of incubation. RAPID A STREP Collected: 09/18/2017 Status: F Source: [facility] ANTIGEN 8:42 PM HOSPITAL REPOSITORY TYPE CODE TESTS RESULT OUT OF REFERENCE UNITS RANGE LAB RSS1 Negative Rapid A Strep Negative Antigen Result Comment: A culture confirmation plate has been set up and a separate report will follow. See micro report. Observed: 09/18/2017 Status: F Source: [facility] CULTURE, STREP A 8:42 PM HOSPITAL REPOSITORY SCREEN ORDERED BY: JASEN FISHER SOURCE: Throat COLLECTED: 09/18/17 20:42 ANTIBIOTICS AT [facility].: RECEIVED : 09/19/17 12:55 Culture, Strep A Screen FINAL 09/21/17 10:11 No Beta Streptococcus isolated in 48 hours ALLERGIES ALLERGIES DATE TYPE / CODE NAME / CODE REACTION SEVERITY SOURCE Drug erythromycin Vomiting Unknown [place] 8 Allergy/902400803( base/[id number](R [facility] XNORM) Hospital Repository Drug metoclopramide/F0 Other Unknown [place] 8 Allergy/076061304( [id number](RXNORM) [facility]) Hospital Repository Drug quetiapine/Q51766 Low blood Unknown [place] 8 Allergy/171559015( 6939(RXNORM) pressure [facility] SNOMED CT) Hospital Repository Miscellaneous SSRI's Other Unknown [place] 8 Allergy/619938433( [facility] SN[facility]) Hospital Repository ENCOUNTERS ENCOUNTERS ADMIT/DISCHARGE ACCOUNT ADMITTING ENCOUNTER LOCATION SOURCE NUMBER CLASS 07/15/2018/07/15/20 [id number] Emergency [address] ing:ED Repository 06/20/2018/06/20/20 [id number] Emergency [address] ing:ED Repository 09/27/2017/09/30/19 [id number] ZAK, Inpatient Building:[address] Encounter Room: [facility] Q869Jpe: 01 Repository 09/26/2017/09/27/19 [id number] SARASUKHDEVNASRIN JIMÉNEZVicki Inpatient Building:OM [facility] 18 Encounter oom: 0216Bed: Hospital 01 Repository 09/18/2017/09/18/19 [id number] Emergency Building:[facility] 18 oom: 05Bed: Hospital 05 Repository PAYERS PAYERS ENCOUNTER GUARANTOR PAYER SUBSCRIBER SOURCE 07/15/2018 GODFREY L Primary GODFRE[facility] L [place] [id number] Insurance:PARAMOUNT KOUTSOPOULOSDOB[facility] [id number] Number: Repository [id number]: [phone] [id number] [phone] (HP) Date:[id number] [address] [address]VC: 07/15/2018 Secondary NOT GIVENUNK [place] Insurance:SELF PAY [facility] Number: Effective Repository Date:2018-07-15 06/20/2018 GODFREY L Primary GODFREY L [place] [id number] Insurance:PARAMOUNT KOUTSOPOULOSDOB: [facility] [id number] Number: Repository [id number]: [phone] [id number] [phone] () Date:[id number] [address] [address]CE: 06/20/2018 Secondary NOT GIVENUNK [place] Insurance:SELF PAY [facility] Number: Effective Repository Date:2018-06-20 09/27/2017 GODFREY L Primary GODFREY L [facility] KOUTSOPOULOSDOB: Insurance:PENDING KOUTSOPOULOSDOB: [facility] [id number] MEDICAIDPolicy [id number] Repository [place], Number: Effective 1 [facility] [id number]: Date:2017-07-01 [place], [place] [address]Lds: [phone] ([phone] (HP)
== END 2018-07-15 21:35 | disposition home or self-care (01) ==
PROVIDERS: Emergency Provider Emergency Medicine
DX: R30.0 Dysuria (principal); R19.7 Diarrhea, unspecified; R10.2 Pelvic and perineal pain; R51 Headache; K57.30 Diverticulosis of large intestine without perforation or abscess without bleeding; N85.8 Other specified noninflammatory disorders of uterus; I10 Essential (primary) hypertension; F90.9 Attention-deficit hyperactivity disorder, unspecified type; M32.9 Systemic lupus erythematosus, unspecified; Z90.49 Acquired absence of other specified parts of digestive tract; Z79.899 Other long term (current) drug therapy; F17.200 Nicotine dependence, unspecified, uncomplicated
CPT/HCPCS: 74176; 81001; 81025; 99283; A4216